=== PATIENT | male | born 1985 | race Two or more races ===

== ENCOUNTER 2017-08-16 20:45 | Inpatient (IN) | payer SELFPAY ==
[~2017-08-16] VITALS: Ht 172.7 cm; Wt 85.5 kg
--- NOTE | 2017-08-16 22:17 | NUR ---
PT TO RADIOLOGY. ACCOMPANIED BY [facility]
[2017-08-16] MEDS ORDERED: IBUPROFEN 400 MG TABLET PO ONE (22:30)
[2017-08-16] MEDS ORDERED: IBUPROFEN 400 MG TABLET ONE (22:39)
[2017-08-16] MEDS ORDERED: MORPHINE SULFATE INJ 4 MG/ML DISP.SYRIN ONE (23:47)
[2017-08-16] MEDS ORDERED: ONDANSETRON HCL/PF 4 MG/2 ML VIAL ONE (23:47)
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
[2017-08-16 23:58] LABS: BASOPHILS % (AUTO) 0.1 % (0.0-2.0); EOSINOPHILS % (AUTO) 0.1 % (0.0-6.0); HEMATOCRIT 41 % (39-51); HEMOGLOBIN 13.9 g/dL (13.5-17.5); LYMPHOCYTES # (AUTO) 1.3 /CMM (0.8-4.8); LYMPHOCYTES % (AUTO) 9.5 % (20.0-44.0); MEAN CORPUSCULAR HGB CONC 34 g/dl (31.0-36.0); MEAN CORPUSCULAR VOLUME 89 fL (80-96); MONOCYTES # (AUTO) 0.4 /CMM (0.1-1.30); MONOCYTES % (AUTO) 3.4 % (2.0-12.0); NEUTROPHILS # (AUTO) 11.6 /CMM (1.8-8.9); NEUTROPHILS % (AUTO) 86.9 % (43.0-81.0); PLATELET COUNT (AUTO) 279 /CMM (150-450); RDW COEFFICIENT OF VARIATION 13.5 (11.5-15.0); WHITE BLOOD COUNT (AUTO) 13.3 K/uL (4.3-11.0)
[2017-08-17] MEDS ORDERED: MORPHINE SULFATE INJ 2 MG/ML DISP.SYRIN IV ONE
[2017-08-17] MEDS ORDERED: ONDANSETRON HCL/PF 4 MG/2 ML VIAL IV ONE
[2017-08-17 00:07] LABS: CALCIUM, SERUM 9.1 mg/dL (8.5-10.1); POTASSIUM 3.5 mmol/L (3.5-5.1)
[2017-08-17 00:11] LABS: INR 0.94 (0.87-1.13)
[2017-08-17] MEDS ORDERED: ONDANSETRON HCL/PF 4 MG/2 ML VIAL IVP PRN (00:30)
[2017-08-17] MEDS ORDERED: MAG HYDROX/AL HYDROX/SIMETH 30 ML UDC PO PRN (00:30)
[2017-08-17] MEDS ORDERED: Z GUARD REMEDY 2 OZ OINT TP PRN (00:30)
[2017-08-17] MEDS ORDERED: MAGNESIUM HYDROXIDE 30 ML UDC PO PRN (00:30)
[2017-08-17] MEDS ORDERED: MORPHINE SULFATE INJ 2 MG/ML DISP.SYRIN IV PRN (00:30)
[2017-08-17] MEDS ORDERED: HYDROCODONE/APAP 5/325MG 1 EACH TABLET PO PRN (00:30)
[2017-08-17] MEDS ORDERED: HYDROCODONE/APAP 10/325MG 1 EA TABLET PO PRN (00:30)
[2017-08-17] MEDS ORDERED: ACETAMINOPHEN 325 MG TABLET PO PRN (00:30)
--- NOTE | 2017-08-17 00:36 | NUR ---
URINE COLLECTED. SENT TO LAB
[2017-08-17 00:45] LABS: APPEARANCE,URINE SL CLOUDY (CLEAR); BILIRUBIN,URINE NEGATIVE (NEGATIVE); BLOOD, URINE NEGATIVE Ery/uL (NEGATIVE); COLOR,URINE YELLOW (YELLOW); KETONES,URINE TRACE (NEGATIVE); LEUKOCYTE ESTERASE ,URINE NEGATIVE (NEGATIVE); NITRITE, URINE NEGATIVE (NEGATIVE); PROTEIN,URINE NEGATIVE (NEGATIVE); UGLUCOSE NEGATIVE (NEGATIVE); UROBILINOGEN,URINE 0.2 EU/dL (0.2)
--- NOTE | 2017-08-17 00:47 | NUR ---
REPORT GIVEN TO ADAM CAMARA FOR MEIR
--- NOTE | 2017-08-17 00:48 | NUR ---
PATIENT TRANSPORTED TO MS BED WITHOUT INCIDENT
[2017-08-17 00:51] LABS: BACTERIA,URINE Few /HPF (None Seen); MUCUS,URINE Moderate /LPF (None Seen); SQUAMOUS EPITHELIAL CELL,UR Rare /HPF (None Seen); WBC,URINE 0-2 /HPF (0-3)
[2017-08-17 01:00] VITALS: BP 121/86
--- NOTE | 2017-08-17 01:15 | NUR ---
MS BOX MAKER NOTES: Patient came to unit via wheelchair. Alert, oriented x 4. Breathing even and unlabored. No signs of distress. No complaints of pain or discomfort. IV site on right AC g#20, intact. Patient ambulatory. Open wound on L inner forearm noted, cleansed with NS and covered with dry dressing. Oriented to use of call sosa. Bed in low locked position. Will continue to monitor.
--- NOTE | 2017-08-17 06:32 | NUR ---
MS RN CLOSING NOTES: Patient in bed, asleep, but easily arousable. Alert, oriented x 4. Breathing even and unlabored. No complaints of pain or discomfort. Call sosa within reach. Bed in low locked position. All needs attended to. Will endorse MEIR to AM shift RN.
--- NOTE | 2017-08-17 07:27 | NUR ---
MS RN OPENING NOTE RECEIVED PATIENT IN BED, ALERT ORIENTED X4, ON ROOM AIR, TOLERATING WELL. RESPIRATIONS EVEN AND UNLABORED, REPORTS MODERATE PAIN IN LOWER BACK. PATIENT IS ABLE TO COMMUNICATE NEEDS. RIGHT AC #20 IVC, SL. PATENT AND INTACT. PATIENT KEPT CLEAN AND COMFORTABLE, ALL NEEDS ATTENDED. SAFETY MEASURES IN PLACE, BED IN LOW LOCKED POSITION, SIDE RAILS UP X2, CALL LIGHT WITHIN EASY REACH. WILL CONTINUE TO MONITOR.
[2017-08-17] MEDS ORDERED: PANTOPRAZOLE 40 MG TABLET.DR PO SCH (07:30)
[2017-08-17 08:00] VITALS: BP 123/79
[2017-08-17] MEDS ORDERED: ENOXAPARIN SODIUM 40 MG/0.4 ML DISP.SYRIN SQ SCH (09:00)
--- NOTE | 2017-08-17 10:08 | NUR ---
TEXTED DR. ZIMMERMAN FOR MRI APPROVAL.
--- NOTE | 2017-08-17 11:39 | NUR ---
ROSALIO was informed by pt's RN Nisa that pt. would like to apply for emergency [employer]. ROSALIO called Zeinab, insurance Liaison x [phone] and informed her that pt. would like assistance in applying for insurance. Zeinab stated she will follow-up with the pt. ROSALIO updated pt's HOA Paula.
--- NOTE | 2017-08-17 15:00 | NUR ---
PATIENT WAS TAKEN TO RADIOLOGY FOR SPINAL MRI W/O CONTRAST.
[2017-08-17 16:00] VITALS: BP 112/65
[2017-08-17] MEDS ORDERED: MORPHINE SULFATE INJ 4 MG/ML DISP.SYRIN IV PRN (16:16)
--- NOTE | 2017-08-17 17:00 | NUR ---
PATIENT IS BACK FROM RADIOLOGY IN STABLE CONDITION.
--- NOTE | 2017-08-17 18:30 | NUR ---
MS CALL OR CONTACT CENTRE TEAM LEADER NOTE DISCHARGE ORDER RECEIVED. EXITCARE PREPARED AND EXPLAINED TO THE PATIENT. ALL DS INSTRUCTIONS AND DOCTORS ORDERS GIVEN, PATIENT VERBALIZED UNDERSTANDING OF DC INSTRUCTIONS AND SIGNED THE PAPERWORK. PATIENT MEDICAL RECORDS WAS PROVIDED, BELONGINGS CHECKED AND ACCOUNTED FOR. IVC REMOVED, TIP IS INTACT. PATIENT REFUSED DC PICTURES OF SKIN IMPAIRMENTS. VITAL SIGNS TAKEN AND RECORDER. PATIENT IS MEDICALLY STABLE. IN NO APPARENT DISTRESS OR DISCOMFORT AT THIS TIME. PATIENT WAS ESCORTED HOME WITH HIS . LEFT THE UNIT WITH ASSISTANCE OF JESSICA MARC AT 1830.
== END 2017-08-17 18:30 | disposition home or self-care (01) | DRG 552 ==
LOC: ER 20:51 → MED 08-17 00:49
PROVIDERS: ADMIT Registered Nurse; ATTEND Registered Nurse
DX: S32.019A Unspecified fracture of first lumbar vertebra, initial encounter for closed fracture (principal); S32.029A Unspecified fracture of second lumbar vertebra, initial encounter for closed fracture; S32.039A Unspecified fracture of third lumbar vertebra, initial encounter for closed fracture; S32.049A Unspecified fracture of fourth lumbar vertebra, initial encounter for closed fracture; V89.2XXA Person injured in unspecified motor-vehicle accident, traffic, initial encounter; Y92.410 Unspecified street and highway as the place of occurrence of the external cause; Z85.71 Personal history of Hodgkin lymphoma; D72.829 Elevated white blood cell count, unspecified; Z85.72 Personal history of non-Hodgkin lymphomas; R73.9 Hyperglycemia, unspecified
CPT/HCPCS: 36415; 71045-TC; 72100-TC; 72131-TC; 72148-TC; 80048-TC; 81000-TC; 85025-TC; 85730-TC; 87081-TC; A4606; A6402; J1650; J2270; J2405; Z7610